=== PATIENT | female | born 1995 | race Caucasian/White ===

== ENCOUNTER 2023-04-06 10:19 | Observation (INO) | payer BC, SELFPAY ==
[2023-04-06] MEDS: DEXTROSE 5%/LACTATED RINGERS 1,000 ML 500 ML IV CONT (11:24)
[2023-04-06] MEDS: ONDANSETRON INJ 4 MG/2 ML VIAL IV PUSH (11:24)
[2023-04-06 11:25] VITALS: BMI 27.7
[2023-04-06 11:29] LABS: Basophils Percent Auto 0.2 % (0.2-1.2); Eosinophils Absolute Auto 0.1 K/mm3 (0-0.3); Eosinophils Percent Auto 1.2 % (0-4.4); Hematocrit 38.3 % (37.0-47.0); Hemoglobin 12.3 g/dL (12.0-15.0); Immature Granulocyte Absolute 0.05 K/mm3 (0.00-0.031); Immature Granulocyte Percent A 0.6 % (0-0.5); Lymphocytes Percent Auto 13.1 % (18.3-44.2); Mean Corpuscular HGB Conc 32.1 g/dl (32-36); Mean Corpuscular Hemoglobin 29.2 pg (26-34); Monocytes Absolute Auto 0.6 K/mm3 (0.1-0.6); Monocytes Percent Auto 7.5 % (2.6-8.5); Neutrophils Absolute Auto 6.5 K/mm3 (1.3-6.7); Neutrophils Percent Auto 77.4 % (45.5-73.1); Platelet Count Result 221 k/mm3 (150-375); Red Blood Count 4.21 M/mm3 (4.2-5.4); Red Cell Distribution Width 13.3 % (11.5-14.5); White Blood Count 8.4 K/mm3 (4.5-10.0)
[2023-04-06 11:31] VITALS: BP 106/42; PULSE 71
[2023-04-06 11:41] LABS: Appearance Urine Clear (Clear); Bacteria Urine 1+ /hpf; Bilirubin Urine Negative (Negative); Blood Urine Negative (Negative); Color Urine Yellow (Yellow); Glucose Urine UA Negative (Negative); Ketones Urine Trace mg/dL (Negative); Leukocyte Esterase Ur Trace LEU/UL (Negative); Nitrate Urine Negative (Negative); Non Pathogenic Casts 0-2; Protein Urine Negative (Negative); RBC Urine 0-2 /hpf (0-2); Specific Grav Ur 1.019 (1.001-1.035); Squamous Epithelial Cell Urine Few /hpf (Few); WBC Urine 0-5 /hpf
[2023-04-06 11:45] LABS: Alanine Aminotransferase 27 U/L (6-35); Albumin Level 3.6 g/dL (3.5-5.1); Alkaline Phosphatase 129 U/L (38-126); Anion Gap 6 mmol/L (8-16); Aspartate Amino Transferase 27 U/L (14-36); Bilirubin,Total 0.8 mg/dL (0.2-1.3); Blood Urea Nitrogen 6 mg/dL (7-17); Calcium 8.4 mg/dL (8.4-10.2); Carbon Dioxide 25 mmol/L (22-30); Chloride 106 mmol/L (98-107); Estimated CRCL calculation 147 ml/min; Estimated Glomerular Filt Rate > 60; Glucose 91 mg/dL (65-110); Potassium 3.7 mmol/L (3.4-5.0); Sodium 137 mmol/L (137-145)
[2023-04-06 12:00] VITALS: BP 118/76; PULSE 78
[2023-04-06 12:26] LABS: Add Urine Microscopic? YES
--- NOTE | 2023-04-26 19:02 | PM.OBTRLD ---
OB - Triage/Final Diagnosis Visit Information Comments/Additional reasons for admission: I have assessed the risk for this patient, Cheyanne Joseph, and determined that she would benefit from observation care. Evaluation Laboratory results: Laboratory Tests 04/06/23 04/06/23 10:56 10:58 WBC 8.4 RBC 4.21 Hgb 12.3 Hct 38.3 MCV 91.0 MCH 29.2 MCHC 32.1 RDW 13.3 Plt Count 221 MPV 12.0 H Immature Gran % (Auto) 0.6 H Neut % (Auto) 77.4 H Lymph % (Auto) 13.1 L [place] % (Auto) 7.5 Eos % (Auto) 1.2 Baso % (Auto) 0.2 Lymph # (Auto) 1.10 [place] # (Auto) 0.6 Eos # (Auto) 0.1 Baso # (Auto) 0.0 Abs Immat Gran (auto) 0.05 H Absolute Neuts (auto) 6.5 Absolute Nucleated RBC 0.0 Nucleated RBC % 0.0 Sodium 137 Potassium 3.7 Chloride 106 Carbon Dioxide 25 Anion Gap 6 L BUN 6 L Creatinine 0.50 L Estim Creat Clear Calc 147 Estimated GFR > 60 Glucose 91 Calcium 8.4 Total Bilirubin 0.8 AST 27 ALT 27 Alkaline Phosphatase 129 H Total Protein 7.0 Albumin 3.6 Urine Color Yellow Urine Appearance Clear Urine pH 8.0 Ur Specific [place] 1.019 Urine Protein Negative Urine Glucose (UA) Negative Urine Ketones Trace H Ur Blood (Man) Negative Urine Nitrate Negative Urine Bilirubin Negative Urine Urobilinogen 2.0 H Leukocyte Esterase Rfl Trace H Urine RBC 0-2 Urine WBC 0-5 Ur Squamous Epith Cells Few Urine Bacteria 1+ H Urine Casts 0-2 Final Diagnosis (1) Gastroenteritis: Code(s): K52.9 - Noninfective gastroenteritis and colitis, unspecified Status: Acute
== END 2023-04-06 12:57 | disposition home or self-care (01) ==
PROVIDERS: Admitting Provider Obstetrics & Gynecology; PCP Physician Assistant; Visit Provider Obstetrics & Gynecology
DX: O99.613 Diseases of the digestive system complicating pregnancy, third trimester (principal); K52.9 Noninfective gastroenteritis and colitis, unspecified; Z3A.34 34 weeks gestation of pregnancy
CPT/HCPCS: 36415; 80053; 81001; 85025; 96374; G0378; G0379; J2405; J7121

== ENCOUNTER 2024-03-07 13:20 | Emergency (ER) | payer BC, SELFPAY ==
--- NOTE | 2024-03-07 13:25 | ED.URI ---
HPI - URI/Sore Throat General Chief Complaint: Upper Respiratory Infection Stated Complaint: sorethroat,headache Time Seen by Provider: 03/07/24 13:45 Source: patient, RN notes reviewed and old records reviewed Mode of arrival: ambulatory Limitations: no limitations History of Present Illness HPI Narrative: 28 year old female presents to the [facility] with complaints of a scratchy throat and headache for 5 days. Has been taking Excedrin reports that on Wednesday and Wednesday she had a fever 101. Reports that she was exposed to influenza. Symptoms started , 5 days ago Onset (ago): day(s) (5) Related Data Home Medications Medication Instructions Recorded Confirmed No Home Medications 03/07/24 03/07/24 Allergies Allergy/AdvReac Type Severity Reaction Status Date / Time No Known Allergies Allergy Verified 03/07/24 13:24 Review of Systems Review of Systems: All systems reviewed & are unremarkable except as noted in HPI and below Constitutional: Constitutional: Reports as per HPI and Reports headache(s) Eyes: Eyes: Reports no additional eye complaints ENT: Reports as per HPI Cardiovascular: Cardiovascular: Reports no additional cardiovascular complaints, Denies chest pain and Denies dyspnea Respiratory: Respiratory: Reports no additional respiratory complaints, Denies chest congestion, Denies cough and Denies dyspnea Gastrointestinal: Gastrointestinal: Reports no additional gastrointestinal complaints, Denies abdominal pain, Denies nausea and Denies vomiting Musculoskeletal: Musculoskeletal: Reports no additional musculoskeletal complaints Integumentary/Breasts: Skin/Breast: Reports system reviewed and no additional complaints, except as docu Neurologic: Reports system reviewed and no additional complaints, except as documented Psychiatric: Psychiatric: Reports no additional psychiatric complaints Allergic/Immunologic: Allergic/Immunologic: Reports no additional allergic/immunologic complaints [facility] Past Medical History Medical History Vaginal delivery Surgical History Surgical History [place] teeth removed Family History Family History Other Breast cancer Cerebrovascular accident Social History Social History Smoking status: Never smoker Second hand tobacco smoke exposure: No Alcohol intake: former Alcohol use details: Not since Substance use: never Substance use type: does not use Lack of Transportation: No Lack of Food: Never True Current Housing: I Have Housing Concerned About Future Housing: No Difficulty Paying Gas/Electric Bills: No Difficulty Paying for Meds: No Currently Unemployed: No Education: Master's Degree or Higher Difficulty w/ Childcare or Family Care: No Living arrangements: with family Occupation/Education: occupation Gender identity (if verbalized by the patient): Female Sexual Orientation (if Verbalized by the Patient): Straight or Heterosexual Spiritual care concerns: No Comments At the time of my signature, I reviewed and agree with the nursing past medical, surgical, social, and family history. There is no relevant family history pertinent to the patient complaint. Exam Const: General: cooperative, healthy appearing, comfortable, no acute distress, well developed, alert and well nourished Nutritional Appearance: well nourished Orientation/consciousness: patient oriented x3 Limitations: no limitations HENMT: Head: normal to inspection Ears: hearing grossly normal bilaterally, external ears normal, TM's normal bilaterally, EAC's normal, mastoids normal, no periauricular adenopathy and Abnormal EAC present Face/Nose/Sinus: Normal external nose present, Normal nares present, Normal nasal mucous
[2024-03-07 13:32] VITALS: BP 128/70; PULSE 78; RESP 16; TEMP 36.3; O2SAT 100
== END 2024-03-07 14:08 | disposition home or self-care (01) ==
PROVIDERS: Emergency Provider Nurse Practitioner; PCP Internal Medicine
DX: J11.1 Influenza due to unidentified influenza virus with other respiratory manifestations (principal); Z20.822 Contact with and (suspected) exposure to COVID-19
CPT/HCPCS: 87081; 87426; 87804; 87880; 99213; G0463

== ENCOUNTER 2024-03-09 08:03 | Emergency (ER) | payer BC, SELFPAY ==
[2024-03-09] VITALS (17 sets, daily range): BP systolic 105–120; BP diastolic 58–77; PULSE 75–100; RESP 12–18; TEMP 36.5; O2SAT 96–100
--- NOTE | ~2024-03-09 | CT_ITS ---
Non-contrast Head CT History: Headache Technique: Axial non-contrast imaging of the brain was performed. Dose reduction technique was used on this scan by utilizing automated exposure control and iterative reconstruction technique. The dose -length product (DLP) was 605.33 mGy-cm. Findings: There is no evidence of intracranial hemorrhage, mass lesion, or acute infarct. Brain par enchyma appears normal. The ventricles and subarachnoid spaces are normal in size. The calvarium ap pears normal. The visualized paranasal sinuses and mastoid air cells are clear. Impression: No significant abnormality seen. Reviewed, dictated and finalized at location . Impression: No significant abnormality seen.
--- NOTE | 2024-03-09 08:22 | ED.GENADULT ---
HPI - General Adult General Chief complaint: Headache Stated complaint: headache, vomiting, fever, Time Seen by Provider: 03/09/24 08:12 Source: patient Mode of arrival: ambulatory Limitations: no limitations History of Present Illness HPI narrative: 28-year-old female presenting for flu-like symptoms for the last week. Has been having headaches which are frontal, nausea, sore throat, generalized fatigue for a week now. Was seen at urgent care a few days ago and tested negative for viral panel. Still having some headaches as well as a symptoms pain no vision changes. No lightheadedness. Vomiting is nonbloody nonbilious Related Data Allergies Allergy/AdvReac Type Severity Reaction Status Date / Time No Known Allergies Allergy Verified 03/07/24 13:24 Review of Systems Review of Systems: All systems reviewed & are unremarkable except as noted in HPI and below PMFSH Past Medical History Medical History Vaginal delivery Surgical History Surgical History [place] teeth removed Family History Family History Other Breast cancer Cerebrovascular accident Social History Social History Smoking status: Never smoker Second hand tobacco smoke exposure: No Alcohol intake: former Alcohol use details: Not since Substance use: never Substance use type: does not use Lack of Transportation: No Lack of Food: Never True Current Housing: I Have Housing Concerned About Future Housing: No Difficulty Paying Gas/Electric Bills: No Difficulty Paying for Meds: No Currently Unemployed: No Education: Master's Degree or Higher Difficulty w/ Childcare or Family Care: No Living arrangements: with family Occupation/Education: occupation Gender identity (if verbalized by the patient): Female Sexual Orientation (if Verbalized by the Patient): Straight or Heterosexual Spiritual care concerns: No Exam Narrative: Constitutional: Generally well appearing, no acute distress Head: Atraumatic, no deformities. Eyes: Pupils equal, round, and reactive to light. Neck: Supple, no tracheal deviation, no JVD. ENMT: Mucous membranes moist Cardiovascular: S1, S2 auscultated. No murmurs, rubs, or gallops. No S3/S4. Normal Distal pulses. No peripheral edema. Respiratory: Lung sounds equal. No wheezes, rales, or rhonchi. Gastrointestinal: Abdomen was soft and non-tender. Non-distended. No rebound or guarding. Genitourinary: Deferred Musculoskeletal: Normal muscle tone and bulk. No obvious deformities or tenderness over extremities. Skin: No rashes. Neurological: Strength 5/5 in extremities. Cranial nerves I-XII grossly intact. Distal sensation intact. Mental Status: Awake, alert and oriented x3. Follows commands Course Vital Signs Vital signs: Vital Signs Pulse Rate 96 03/09/24 08:07 Respiratory Rate 15 03/09/24 08:07 Temperature 36.5 C 03/09/24 08:10 Pulse Rate 88 03/09/24 11:32 Respiratory Rate 18 03/09/24 11:32 Blood Pressure 105/58 L 03/09/24 11:32 Pulse Oximetry 99 03/09/24 11:32 Oxygen Delivery Room Air 03/09/24 08:10 Medical Decision Making [facility] Narrative Medical decision making narrative: 28-year-old female here with headaches, nausea, vomiting, sore throat, fatigue for a week. Seen several days ago at urgent care and diagnosed with viral syndrome. On exam she is very well-appearing, normal neurological exam, normal vital signs. Does appear to be likely a viral syndrome versus migraine potentially. We did have a extensive discussion about obtaining imaging of her head as having vomiting with headaches is a potential presentation of having elevated intracranial pressure or other intracranial abnormalities. Discussed given her n
[2024-03-09] MEDS: SODIUM CHLORIDE 0.9% IV 1,000 ML 999 ML IV CONT (08:54)
[2024-03-09 08:55] LABS: Appearance Urine Clear (Clear); Bacteria Urine None Seen /hpf; Bilirubin Urine Negative (Negative); Blood Urine Negative (Negative); Color Urine Yellow (Yellow); Glucose Urine UA Negative (Negative); Ketones Urine Negative (Negative); Leukocyte Esterase Ur Trace LEU/UL (Negative); Nitrate Urine Negative (Negative); Non Pathogenic Casts 0-2; Protein Urine Negative (Negative); RBC Urine 0-2 /hpf (0-2); Specific Grav Ur 1.024 (1.001-1.035); Squamous Epithelial Cell Urine Few /hpf (Few); WBC Urine 0-5 /hpf (0-3)
[2024-03-09] MEDS: ONDANSETRON INJ 4 MG/2 ML VIAL IV PUSH (08:55)
[2024-03-09] MEDS: KETOROLAC 30 MG/ML VIAL (*BKC) 15 MG IV PUSH (08:55)
[2024-03-09 08:58] LABS: Add Urine Microscopic? YES
[2024-03-09 09:00] LABS: Basophils Percent Auto 0.3 % (0.2-1.2); Eosinophils Absolute Auto 0.2 K/mm3 (0-0.3); Eosinophils Percent Auto 2.9 % (0-4.4); Hematocrit 42.8 % (37.0-47.0); Hemoglobin 13.8 g/dL (12.0-15.0); Immature Granulocyte Absolute 0.02 K/mm3 (0.00-0.031); Immature Granulocyte Percent A 0.3 % (0-0.5); Lymphocytes Absolute Auto 1.04 K/mm3 (0.9-3.2); Lymphocytes Percent Auto 16.9 % (18.3-44.2); Mean Corpuscular HGB Conc 32.2 g/dl (32-36); Mean Corpuscular Hemoglobin 29.1 pg (26-34); Mean Corpuscular Volume 90.1 fl (80-100); Mean Platelet Volume 11.7 fl (7.4-10.4); Monocytes Absolute Auto 0.6 K/mm3 (0.1-0.6); Monocytes Percent Auto 9.9 % (2.6-8.5); Neutrophils Absolute Auto 4.3 K/mm3 (1.3-6.7); Neutrophils Percent Auto 69.7 % (45.5-73.1); Platelet Count Result 214 k/mm3 (150-375); Red Blood Count 4.75 M/mm3 (4.2-5.4); Red Cell Distribution Width 12.3 % (11.5-14.5); White Blood Count 6.2 K/mm3 (4.5-10.0)
[2024-03-09 09:06] LABS: Alanine Aminotransferase 16 U/L (6-35); Albumin Level 4.6 g/dL (3.5-5.1); Alkaline Phosphatase 64 U/L (38-126); Anion Gap 8 mmol/L (4-12); Aspartate Amino Transferase 20 U/L (14-36); Bilirubin,Total 1.3 mg/dL (0.2-1.3); Blood Urea Nitrogen 17 mg/dL (7-17); Calcium 8.8 mg/dL (8.4-10.2); Carbon Dioxide 23 mmol/L (22-30); Chloride 106 mmol/L (98-107); Estimated CRCL calculation 85 ml/min; Estimated Glomerular Filt Rate > 60; Glucose 101 mg/dL (65-110); Potassium 4.1 mmol/L (3.4-5.0); Sodium 137 mmol/L (137-145)
[2024-03-09 10:45] LABS: Influenza A QL RT-PCR Negative (Negative); Influenza B QL RT-PCR Negative (Negative); RSV RNA, RT-PCR Negative (Negative); SARS-CoV-2 RNA PCR Negative (Negative)
[2024-03-09] MEDS: diphenhydrAMINE HCl INJ 50 MG/ML VIAL IV PUSH (11:16)
[2024-03-09] MEDS: METOCLOPRAMIDE HCL INJ 10 MG/2 ML VIAL IV PUSH (11:16)
== END 2024-03-09 12:31 | disposition home or self-care (01) ==
PROVIDERS: Emergency Provider Emergency Medicine; PCP Internal Medicine
DX: G43.909 Migraine, unspecified, not intractable, without status migrainosus (principal); Z20.822 Contact with and (suspected) exposure to COVID-19
CPT/HCPCS: 36415; 70450; 80053; 81001; 81025; 85025; 87637; 96361; 96374; 96375; 99284; J1200; J1885; J2405; J2765; J7030

== ENCOUNTER 2025-02-27 07:12 | Outpatient (CLI) | payer BC, SELFPAY ==
--- NOTE | ~2025-02-27 | US_ITS ---
Pelvic ultrasound. Clinical History: First trimester , establish dates and viability Technique: Realtime transabdominal and transvaginal scanning of the pelvis was performed. Color flow Doppler and Doppler spectral analysis were performed. Findings: The uterus is anteverted, and contains an intrauterine gestation. [place]-rump length of 2.9 cm corresponds to an estimated gestational age of 9 weeks 5 days. heart rate is 182 bpm. Yolk s ac also present. There is suggestion of thin septations or synechiae within the gestational sac, exte rnal to the amnion, internal to the chorion. There is a 1.4 x 1.3 x 1.5 cm hypoechoic somewhat massli ke structure protruding from the dose into. The right ovary measures 2.5 x 1.6 x 3.0 cm. No significant right ovarian or adnexal mass is seen. The left ovary measures 1.8 x 2.8 x 1.8 cm. No significant left ovarian or adnexal mass is seen. There is no evidence of free fluid in the cul de sac. Impression: Live intrauterine gestation, with estimated gestational age of 9 weeks 5 days. heart rate is 18 2 bpm. Suggestion of thin septations or synechiae within the gestational sac, but external to the amnion. 1.4 x 1.3 x 1.5 cm hypoechoic solid masslike structure indenting the gestational sac, protruding from the placenta. This could reflect a chorionic bump/focal hematoma. Follow-up ultrasound advised given the gestational sac and placental findings noted above. Reviewed, dictated and finalized at location . Impression: Live intrauterine gestation, with estimated gestational age of 9 weeks 5 days. heart rate is 182 bpm. Suggestion of thin septations or synechiae within the gestational sac, but exte rnal to the amnion. 1.4 x 1.3 x 1.5 cm hypoechoic solid masslike structure indenting the gestationa l sac, protruding from the placenta. This could reflect a chorionic bump/focal hematoma. Follow-up ultrasound advised given the gestational sac and placental findings n oted above.
--- OUTSIDE RECORDS SUMMARY | 2025-02-27 07:18 | XMS_ITS | Clinical Summary ---
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 Gender Identity Not on file Sexual Orientation Not on file Plan of Treatment Health Maintenance Due Date Last Done Comments Annual Physical 1997 Hepatitis C 2012 DTaP, Tdap and Td Vaccines ( 1 - Tdap) 2013 Hepatitis B Vaccines (1 of 3 - 19+ 3-dose series) 2013 COVID-19 Vaccine (2023-2 5 season) 2024 HPV Vaccines Aged Out No longer eligi ble based on patient's age to complete this topic Meningococcal B Vaccine Aged Out No l onger eligible based on patient's age to complete this topic Meningococcal Vaccine Aged Out No rosalee warner eligible based on patient's age to complete this topic Pneumococcal Vaccine: Pediat rics (0 to 5 Years) and At-Risk Patients (6 to 64 Years) Aged Out No longer eligible b ased on patient's age to complete this topic RSV Immunizations Under 20 Months Aged Out No longer eligible based on patient's age to complete this topic
--- OUTSIDE RECORDS SUMMARY | 2025-02-27 07:18 | XMS_ITS | Clinical Summary ---
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
--- OUTSIDE RECORDS SUMMARY | 2025-02-27 07:18 | XMS_ITS | Clinical Summary ---
Author Organization 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 Gender Identity Not on file Sexual Orientation Not on file Plan of Treatment Health Maintenance Due Date Last Done Comments Hepatitis C Virus (HCV) Screening 1994 TdaP Immunization 1994 Hepatitis B Immunization (1 of 3 - 19+ 3-dose series) 2013 Pap Smear 2015 Cervical Cancer Screening (CCS) 2024 HPV/Cotest 2024 Influenza Immunization (#1) 2024 SARS-COV-2 Immunization ( season) 2024 Respiratory Syncytial Virus (RSV) Immunization (Adult) (1 - 1-dose 75+ series) 2069 Meningococcal Immunization (ACWY) Aged Out No longer eligible based on patient's age to complete this topic Pneumococcal Immunization Combined Aged Out No longer eligible based on patient's age to complete this topic Rotavirus Immunization Aged Out No lo nger eligible based on patient's age to complete this topic
== END 2025-02-27 07:13 | disposition home or self-care (01) ==
PROVIDERS: PCP Obstetrics & Gynecology; Visit Provider Nurse Practitioner Family
DX: O36.80X0 Pregnancy with inconclusive fetal viability, not applicable or unspecified (principal); Z3A.09 9 weeks gestation of pregnancy
CPT/HCPCS: 76801; 76817

== ENCOUNTER 2025-03-05 13:07 | Outpatient (CLI) | payer BC, SELFPAY ==
--- NOTE | ~2025-03-05 | US_ITS ---
EXAMINATION: US OB <=14 wk fetus w TV DATE: 03/05/2025 18:26 CDT INDICATION: One-week follow-up. Chorionic bump versus focal hematoma COMPARISON: 02/27/2025 TECHNIQUE: Real-time transabdominal obstetric ultrasound. FINDINGS: 2 para 1 Estimated date of delivery by last ultrasound is 09/28/2025 The uterus measures 9.9 x 5.8 x 8.7 cm A gestational sac is identified within the uterus. A pole is identified, with a crown-rump length that measures 3.6 cm, corresponding to an approx imate gestational age of 10 weeks and 4 days. cardiac activity is identified at a rate of 175 bpm. Redemonstration of a convex shaped irregular avascular protrusion from the choriodecidual surface int o the gestational sac. This focus measures 14 x 11 x 21 mm, compared with 14 x 13 x 15 mm on the prev ious study. The difference in size may be secondary to positioning and technique, as well as the use of an additional ultrasound machine in obtaining these images. Redemonstration of synechiae within the gestational sac, external to the amnion. The right ovary measures 3.0 x 2.0 x 2.4 cm. The left ovary measures 3.1 x 1.9 x 2.2cm. Estimated date of delivery by ultrasound is 09/27/2025 IMPRESSION: Single intrauterine gestation with an approximate gestational age of 10 weeks and 4 days, with cardiac activity identified. Redemonstration of a chorionic bulge, for which short-term follow-up is recommended. Redemonstration of likely synechiae within the gestational sac, unchanged from prior. Reviewed, dictated and finalized at location A. IMPRESSION: Single intrauterine gestation with an approximate gestational age of 10 weeks a nd 4 days, with cardiac activity identified. Redemonstration of a chorionic bulge, for which short-term follow-up is recomme nded. Redemonstration of likely synechiae within the gestational sac, unchanged from prior.
== END 2025-03-05 13:08 | disposition home or self-care (01) ==
PROVIDERS: PCP Obstetrics & Gynecology; Visit Provider Nurse Practitioner Family
DX: O28.3 Abnormal ultrasonic finding on antenatal screening of mother (principal); Z3A.10 10 weeks gestation of pregnancy
CPT/HCPCS: 76801; 76817

== ENCOUNTER 2025-07-06 08:53 | Outpatient (CLI) | payer BC, SELFPAY ==
--- OUTSIDE RECORDS SUMMARY | 2025-07-06 09:00 | XMS_ITS | Clinical Summary ---
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
--- OUTSIDE RECORDS SUMMARY | 2025-07-06 09:00 | XMS_ITS | Clinical Summary ---
Author Organization [facility] Address [address] [place] [address] [place] [address] Care Team Providers Care Business Support Professional Name Role Phone Unavailable Primary Care Provider Unavailabl e Source Comments [facility],non-owned Affiliates and Associated Physician Practices is amultiple site organization consisting of ambulatory clinics and hospital sitesin [place], [place], [place] and [place]. This disclosure is being madepursuant to the Care Everywhere program and may not contain all information available regarding this patient. Last updated 18.[facility] Allergies No known active allergies Encounters Date Type Department Care Team Description 06/08/2025 8:00 AM CDT - 06/08/2025 11:59 PM CDT Hospital Encounter [facility] Maternal & Care [address] [place] [phone] Charley Velazquez MD ADDICTION COUNSELOR Discharge Disposition: Home or Self Care 05/11/2025 8:15 AM CDT - 05/11/2025 11:59 PM CDT Hospital Encounter [facility] Maternal & Care [address] [place] [id number] Charley Velazquez MD ADDICTION COUNSELOR Discharge Disposition: Home or Self Care from Last 3 Months Social History Tobacco Use Types Packs/Day Years Used Date Smoking Tobacco: Never Assessed Estimated Date of Delivery Comme nts Yes 09/27/2025 Based on last me nstrual period of 12/21/2024 Sex and Gender Information Value Date Recorded Sex Assigned at Not on file 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 Gender Identity Not on file Sexual Orientation Not on file Plan of Treatment Upcoming Encounters Date Type Department Care Team (Late st Contact Info) Description 08/03/2025 1:45 PM CDT Appointment [facility] Women's Health Maternal & Care [address] [place] [phone] Health Maintenance Due Date Last Done Comments HIV SCREENING 2009 HEPATITIS C SCREENING 04/18/2012 DTAP/TDAP/TD VACCINES (1 - Tdap) 2013 HEPATITIS B VACCINE (1 of 3 - 19+ 3-dose series) 2013 PAP SMEAR 2015 HPV VACCINE (1 - 3-dose SCDM series) 2021 COVID-19 VACCINE (1 - 2023-2 5 season) 2024 DEPRESSION SCREENING 11/29/2024 OB-ONE HOUR GLUCOSE 06/21/2025 OB-TDAP CURRENT 06/28/2025 03/12/2023 OB-RHOGAM INJECTION 07/05/2025 INFLUENZA VACCINE (#1) 2025 Respiratory Syncytial Virus (RSV) Vaccine Pt: or over 60 yrs (1 - Risk 1-dose series) 08/02/2025 ZOSTER VACCINE (1 of 2) 2044 HIB VACCINE Aged Out No longer eligi ble based on patient's age to complete this topic MENINGOCOCCAL (Group B) VACC INE SHARED DECISION-MAKING Aged Out No longer eligibl e based on patient's age to complete this topic MENINGOCOCCAL GROUPS A/C/Y/W VACCINE Aged Out No longer eligible b ased on patient's age to complete this topic PNEUMOCOCCAL VACCINE Aged Out No long er eligible based on patient's age to complete this topic Procedures Procedure Name Priority Date/Time Associated Diagnosis Comments SONOGRAM - COMPLETE Routine 06/08/2025 8:10 AM CDT Uterine fibroid complicating care, baby not yet delivered in first trimester (HCC) Encounter for anatomic survey (HCC) 19 weeks gestation of ([facility]) SONOGRAM - COMPLETE Routine 05/11/2025 8:11 AM CDT Uterine fibroid complicating care, baby not yet delivered in first trimester (HCC) Encounter for anatomic survey (HCC) 19 weeks gestation of ([facility]) from Last 3 Months Results * SONOGRAM - COMPLETE (06/08/2025 8:10 AM CDT) Only the most recent of2 resultswithin the time period is included. Linked Results Indication ======== anatomy survey Abnormal outside ultrasound in 1st-trimester (solid mass-like structure protruding into the gestational sac, septations between the amnion and chorion), Normal-appearing MFM ultrasound at 12 weeks, Follow-up to complete anatomic survey History ====== OB History 2. Para 1 Maternal Assessment Physical Exam Height 168 cm, 5 ft 6 in. Weight 68 kg, 151 lb. Initial weight 64 kg, 142 lb. BMI 24.37 kg/m . Initial BMI 22.92 kg/m . Weight gain 4 kg, 9 lb Method ====== Transabdominal ultrasound. View: Sufficient ========= Ward . Number of fetuses: 1 Dating ====== Date Details Gest. age OANH LMP 12/21/2024 24 w + 1 d 09/27/2025 Stated OANH 24 w + 1 d 09/27/2025 U/S 06/08/2025 based upon AC, BPD, Femur, HC 24 w + 6 d 09/22/2025 Assigned dating based on the LMP, selected on 03/19/2025 24 w + 1 d 09/27/2025 General Evaluation Cardiac activity present. FHR 143 bpm. Presentation: variable Placenta: Placental site: anterior Umbilical cord: Cord vessels: 3 vessel cord - previously documented. Insertion site: normal insertion - previously documented Amniotic fluid: Amount of AF: normal. MVP 4.1 cm Biometry BPD 60.9 mm 24w 5d 67% Hadlock HC 223.3 mm 24w 3d 39% Hadlock AC 210.0 mm 25w 4d 82% Hadlock Femur 43.8 mm 24w 3d 45% Hadlock Humerus 44.2 mm 26w 2d 95% Anita HC / AC 1.06 Weight Calculation: EFW 755 g 77% Hadlock EFW (lb,oz) 1 lb 11 oz EFW by Hadlock ([id number]) appropriate Growth Overview Exam date GA BPD (mm) HC (mm) AC (mm) FL (mm) HL (mm) EFW (g) 05/11/2025 20w 1d 45.9 38% 173.1 29% 147.9 41% 31 24% 30.7 54% 317 30% 06/08/2025 24w 1d 60.9 67% 223.3 39% 210 82% 43.8 45% 44.2 95% 755 77% Anatomy The following structures appear normal: Face Lips. Nose. Heart / Thorax RVOT view. 3-vessel view. 2-[id number] view. Aortic arch view. Abdomen Cord insertion. Stomach. Kidneys. Bladder. Spine Cervical spine. Thoracic spine. Lumbar spine. Sacral spine. Extremities / Skeleton Hands. Left hand. The following structures were documented previously: Head / Neck Cranium. Lateral ventricles. Choroid plexus. Midline falx. Cavum septi pellucidi. Cerebellum. Cisterna magna. Thalami. Nuchal fold. Face Profile. Nasal bone. Orbits. Heart / Thorax 4-chamber view. LVOT view. Situs. Bicaval view. Ductal arch view. Great vessels. Right lung. Left lung. Diaphragm. Abdomen Bowel. Genitals. Extremities / Skeleton Arms. Right hand. Legs. Feet. sex: male. Impression ========= Single, live, intrauterine at 24w 1d The size & amniotic fluid volume are normal No malformations were seen within the limitations of ultrasound Comment ======== U/S cannot detect all structural, genetic, or functional , placental, or maternal abnormalities Follow-up ======== Follow up as clinically indicated Coding ====== Diagnoses Z36.3: Encounter for screening for malformations Procedures 05847: US Preg Uterus Follow Up [employer] PACS Anatomical Region Laterality Modality Other 06/08/2025 8:10 AM CDT us Tim Landry MD [facility] ORDERABLES Edited Result - Final from Last 3 Months Insurance [facility] Address: [facility] [id number] [place] [address]
--- OUTSIDE RECORDS SUMMARY | 2025-07-06 09:00 | XMS_ITS | Clinical Summary ---
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 Gender Identity Not on file Sexual Orientation Not on file Plan of Treatment Health Maintenance Due Date Last Done Comments Annual Physical 1997 Hepatitis C 2012 DTaP, Tdap and Td Vaccines ( 1 - Tdap) 2013 Hepatitis B Vaccines (1 of 3 - 19+ 3-dose series) 2013 HPV Vaccines (1 - 3-dose SCD M series) 2021 COVID-19 Vaccine (1 - 2023-2 5 season) 2024 Meningococcal B Vaccine Aged Out No l onger eligible based on patient's age to complete this topic Meningococcal Vaccine Aged Out No rosalee warner eligible based on patient's age to complete this topic Pneumococcal Vaccine: Pediat rics (0 to 5 Years) and At-Risk Patients (6 to 49 Years) Aged Out No longer eligible b ased on patient's age to complete this topic RSV Immunizations Under 20 Months Aged Out No longer eligible based on patient's age to complete this topic
--- OUTSIDE RECORDS SUMMARY | 2025-07-06 09:00 | XMS_ITS | Clinical Summary ---
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
[2025-07-06 11:23] LABS: Hematocrit 38.8 % (37.0-47.0); Hemoglobin 12.8 g/dL (12.0-15.0); Mean Corpuscular HGB Conc 33.0 g/dl (32-36); Mean Corpuscular Hemoglobin 30.3 pg (26-34); Mean Corpuscular Volume 91.9 fl (80-100); Platelet Count Result 174 k/mm3 (150-375); Red Blood Count 4.22 M/mm3 (4.2-5.4); White Blood Count 9.8 K/mm3 (4.5-10.0)
[2025-07-06 11:44] LABS: Glucose 1 Hour PP 50gm Dose 81 mg/dL
[2025-07-06 12:24] LABS: HIV 1/2 Ab P24 Ag Result Negative (Negative)
[2025-07-06 12:39] LABS: Syphilis IgG/IgM Antibody Non-Reactive (Nonreactive)
== END 2025-07-06 08:54 | disposition home or self-care (01) ==
LOC: ANHLAB 08:56
PROVIDERS: Visit Provider Nurse Practitioner Family
DX: Z34.90 Encounter for supervision of normal pregnancy, unspecified, unspecified trimester (principal); Z3A.00 Weeks of gestation of pregnancy not specified
CPT/HCPCS: 36415; 82947; 85027; 86593; 86703; G0432

== ENCOUNTER 2025-09-14 16:08 | Observation (INO) | payer BC, SELFPAY ==
--- NOTE | 2025-09-14 16:08 | OBADM ---
This patient, Cheyanne Joseph, admitted to the OB room Labor/Delivery/Recovery 106 for observation. Patient/family oriented to hospital policies and general routines including ID bracelet, bed and alarms, visiting hours, pain management, procedures, bathroom and other care routines, personal items, smoking policy, room service/diet, and visiting hours. Patient/Family are encouraged to report perceived risks to care and to ask questions if they do not understand what they are told or what they should do.
[2025-09-14 17:45] VITALS: BP 119/87; PULSE 97
--- OUTSIDE RECORDS SUMMARY | 2025-09-14 17:50 | XMS_ITS | Clinical Summary ---
Author Organization [facility] Address [address] [place] [phone] Phone Care Team Providers Care Ceramic Engineering Professor Name Role Phone Unavailable Primary Care Provider Unavailabl e Social History Tobacco Use Types Packs/Day Years Used Date Smoking Tobacco: Never Assessed Comments Unknown Sex and Gender Information Value Date Recorded Sex Assigned at Not on file Legal Sex Female 1:36 PM LABORER/GRADE CHECK Gender Identity Not on file Sexual Orientation Not on file Plan of Treatment Health Maintenance Due Date Last Done Comments DTAP/TDAP/TD VACCINES (1 - Tdap) 2013 HEPATITIS B VACCINES (1 of 3 - 19+ 3-dose series) 03/30 HPV/Cotest (21-29) 2015 HPV VACCINES (1 - 3-dose SCDM series) 2021 CERVICAL CANCER SCREENING 2024 HPV/Cotest (30-65) 2024 PAP SMEAR 2024 INFLUENZA VACCINE (#1) 2025 Insurance [facility] BLUE ACCESS CHOICE
--- OUTSIDE RECORDS SUMMARY | 2025-09-14 17:50 | XMS_ITS | Clinical Summary ---
Author Organization [facility] Address [address] [place] [address] Care Team Providers Care Eye Glass Frame Polisher Name Role Phone Unavailable Primary Care Provider Unavailabl e Source Comments [facility],non-owned Affiliates and Associated Physician Practices is amultiple site organization consisting of ambulatory clinics and hospital sitesin [place], [place], [place] and [place]. This disclosure is being madepursuant to the Care Everywhere program and may not contain all information available regarding this patient. Last updated 18.[facility] [employer] Allergies No known active allergies Encounters Date Type Department Care Team Description 07/24/2025 7:30 AM CDT - 07/24/2025 11:59 PM CDT Hospital Encounter [facility] Women's Health Maternal & Care [address] [place] [id number] Jasmina Gordillo MD Discharge Disposition: Home or Self Care from Last 3 Months Social History Tobacco Use Types Packs/Day Years Used Date Smoking Tobacco: Never Assessed Estimated Date of Delivery Comme nts Yes 09/27/2025 Based on last me nstrual period of 12/21/2024 Sex and Gender Information Value Date Recorded Sex Assigned at Not on file 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..] on patient's age to complete this topic Respiratory Syncytial Virus (RSV) Vaccine Pt: or over 60 yrs (No Doses Required) Completed Procedures Procedure Name Priority Date/Time Associated Diagnosis Comments SONOGRAM - COMPLETE Routine 07/24/2025 7:44 AM CDT Uterine fibroid complicating care, baby not yet delivered in first trimester ([facility]) Encounter for ultrasound to assess growth ([facility]) 30 weeks gestation of ([facility]) from Last 3 Months Results * Sonogram - Complete (07/24/2025 7:44 AM CDT) Linked Results Indication ======== Encounter for ultrasound to assess growth Abnormal outside ultrasound in 1st-trimester (solid mass-like structure protruding into the gestational sac, septations between the amnion and chorion), Normal-appearing MFM ultrasound at 12 weeks History ====== OB History 2. Para 1 [id number] 1. live 2022. Gest. age 38 w + 0 d. Weight 3,374 g. Sex of child: female. Details: Vaginal delivery Maternal Assessment Physical Exam Height 168 cm, 5 ft 6 in. Weight 75 kg, 165 lb. Initial weight 64 kg, 142 lb. BMI 26.63 kg/m . Initial BMI 22.92 kg/m . Weight gain 10 kg, 23 lb Method ====== Transabdominal ultrasound, Transabdominal ultrasound. View: Good view ========= Ward . Number of fetuses: 1 Dating ====== Date Details Gest. age OANH LMP 12/21/2024 30 w + 5 d 09/27/2025 Stated OANH 30 w + 5 d 09/27/2025 U/S 07/24/2025 based upon AC, BPD, Femur, HC 31 w + 6 d 09/19/2025 Assigned dating based on the LMP, selected on 03/19/2025 30 w + 5 d 09/27/2025 General Evaluation Cardiac activity present. FHR 154 bpm. Presentation: cephalic Placenta: Placental site: anterior Umbilical cord: Cord vessels: 3 vessel cord - previously documented. Insertion site: normal insertion - previously documented Amniotic fluid: Amount of AF: normal. MVP 7.1 cm. LUCITA 23.9 cm. Q1 7.1 cm, Q2 5.3 cm, Q3 5.7 cm, Q4 5.9 cm Biometry BPD 81.1 mm 32w 4d 89% Hadlock HC 291.7 mm 32w 1d 55% Hadlock AC 275.0 mm 31w 4d 72% Hadlock Femur 59.2 mm 30w 6d 40% Hadlock Humerus 53.0 mm 30w 6d 59% Anita HC / AC 1.06 Weight Calculation: EFW 1,778 g 64% Hadlock EFW (lb,oz) 3 lb 15 oz EFW by Hadlock ([id number]) appropriate Growth Overview Exam date GA BPD (mm) HC (mm) AC (mm) FL (mm) HL (mm) EFW (g) 05/11/2025 20w 1d 45.9 38% 173.1 29% 147.9 41% 31 24% 30.7 54% 317 30% 06/08/2025 24w 1d 60.9 67% 223.3 39% 210 82% 43.8 45% 44.2 95% 755 77% 07/24/2025 30w 5d 81.1 89% 291.7 55% 275 72% 59.2 40% 53 59% 1778 64% Anatomy The following structures appear normal: Abdomen Stomach. Kidneys. Bladder. sex: male. Impression ========= Single, live, intrauterine at 30w 5d The size is appropriate. The amniotic fluid volume is normal. No major malformations were seen within the limitations of ultrasound Comment ======== ultrasound alone cannot detect all structural, genetic, or functional , placental, or maternal abnormalities Follow-up ======== Growth US in 4-6 weeks, or as clinically indicated. Coding ====== Diagnoses Z36.3: Encounter for screening for malformations Z36.89: Encounter for other specified screening Procedures 98183: US Preg Uterus Follow Up [place] PACS Anatomical Region Laterality Modality Other 07/24/2025 7:44 AM CDT Tim Landry MD [facility] ORDERABLES Edited Result - Final from Last 3 Months Insurance [facility]
--- OUTSIDE RECORDS SUMMARY | 2025-09-14 17:50 | XMS_ITS | Clinical Summary ---
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
--- OUTSIDE RECORDS SUMMARY | 2025-09-14 17:50 | XMS_ITS | Clinical Summary ---
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
[2025-09-14 18:00] VITALS: BP 108/66; PULSE 84
--- NOTE | 2025-09-14 18:00 | PC.NURSE ---
Dr. Cardoza notified of pt SVE and reactive tracing reviewed. No further cervical change made. Discharge orders received from Dr. Cardoza.
[2025-09-14 18:40] VITALS: BMI 27.0
--- NOTE | 2025-09-17 16:02 | PM.OBTRLD ---
OB - Triage/Final Diagnosis Visit Information Reason for evaluation: threatened labor Comments/Additional reasons for admission: I have assessed the risk for this patient, Cheyanne Brittani Joseph, and determined that she would benefit from observation care.
== END 2025-09-14 18:14 | disposition home or self-care (01) ==
PROVIDERS: Admitting Provider Obstetrics & Gynecology; Visit Provider Obstetrics & Gynecology
DX: O47.1 False labor at or after 37 completed weeks of gestation (principal); Z3A.38 38 weeks gestation of pregnancy
CPT/HCPCS: G0378; G0379

== ENCOUNTER 2025-09-22 06:56 | Inpatient (IN) | payer BC, SELFPAY ==
[2025-09-22] VITALS (117 sets, daily range): BP systolic 35–133; BP diastolic 24–98; PULSE 54–160; RESP 16; TEMP 36.2–37.7; O2SAT 96–100; BMI 27.8
--- OUTSIDE RECORDS SUMMARY | 2025-09-22 07:01 | XMS_ITS | Clinical Summary ---
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
--- OUTSIDE RECORDS SUMMARY | 2025-09-22 07:01 | XMS_ITS | Clinical Summary ---
Author Organization [facility] Address [address] [place] [phone] Phone Care Team Providers Care Corrugated Box Machine Operator Name Role Phone Unavailable Primary Care Provider Unavailabl e Social History Tobacco Use Types Packs/Day Years Used Date Smoking Tobacco: Never Assessed Comments Unknown Sex and Gender Information Value Date Recorded Sex Assigned at Not on file Legal Sex Female 1:36 PM FIRST COOK Gender Identity Not on file Sexual Orientation Not on file Plan of Treatment Health Maintenance Due Date Last Done Comments DTAP/TDAP/TD VACCINES (1 - Tdap) 2013 HEPATITIS B VACCINES (1 of 3 - 19+ 3-dose series) 03/30 HPV/Cotest (21-29) 2015 HPV VACCINES (1 - 3-dose SCDM series) 2021 CERVICAL CANCER SCREENING 2024 HPV/Cotest (30-65) 2024 PAP SMEAR 2024 INFLUENZA VACCINE (#1) 2025 Insurance [facility] BLUE ACCESS CHOICE
--- OUTSIDE RECORDS SUMMARY | 2025-09-22 07:01 | XMS_ITS | Clinical Summary ---
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
[2025-09-22 07:37] LABS: Hematocrit 38.7 % (37.0-47.0); Hemoglobin 13.0 g/dL (12.0-15.0); Immature Granulocyte Percent A 0.6 % (0-0.5); Lymphocytes Absolute Auto 1.96 K/mm3 (0.9-3.2); Mean Corpuscular HGB Conc 33.6 g/dl (32-36); Mean Corpuscular Hemoglobin 30.0 pg (26-34); Mean Corpuscular Volume 89.4 fl (80-100); Nucleated Red Blood Cells Absolute Auto 0.000 K/mm3 (0.0-0.012); Nucleated Red Blood Cells Perc 0.0 % (0.0-0.2); Platelet Count Result 178 k/mm3 (150-375); Red Blood Count 4.33 M/mm3 (4.2-5.4); White Blood Count 10.9 K/mm3 (4.5-10.0)
--- NOTE | 2025-09-22 07:42 | LDADM ---
This patient, Cheyanne Joseph, was admitted to Labor/Delivery/Recovery 105 on 09/22/25 at 06:56. Plans for labor, pain management and were discussed with patient. Patient/family oriented to hospital policies and general routines including ID bracelet, bed and alarms, visiting hours, pain management, procedures, bathroom and other care routines, personal items, smoking policy, room service/diet and guest tray routines, security routines, and visiting hours. Patient/Family are encouraged to report perceived risks to care and to ask questions if they do not understand what they are told or what they should do. See [facility]BI[facility] for further documentation.
[2025-09-22] MEDS: LACTATED RINGERS 1,000 ML 125 ML IV CONT ×2 (07:56→12:53)
[2025-09-22 08:25] LABS: Syphilis IgG/IgM Antibody Non-Reactive (Nonreactive)
[2025-09-22] MEDS: OXYTOCIN 30 UNITS/NS 500 ML 30 UNITS/500 ML BAG IV CONT (09:27)
[2025-09-22] MEDS: LACTATED RINGERS 1,000 ML 999 ML IV CONT (11:19)
[2025-09-22] MEDS: ONDANSETRON INJ 4 MG/2 ML VIAL IV PUSH (14:13)
[2025-09-22] MEDS: FAMOTIDINE 20 MG/2 ML VIAL IV PUSH (14:19)
--- NOTE | 2025-09-22 17:37 | PM.IMHP ---
H&P: HPI History of Present Illness Date/Time: 09/22/25 17:37 Chief Complaint: MIL Narrative: She presents for MIL. PNC uncomplicated. Review of Systems Review of Systems: All systems reviewed & are unremarkable except as noted in HPI and below Constitutional: Constitutional: Reports no additional constitutional complaints and Denies headache(s) Eyes: Eyes: Denies spots in vision ENT: Reports system reviewed and no additional complaints, except as documented and Denies headache(s) Cardiovascular: Cardiovascular: Denies chest pain and Denies dyspnea Respiratory: Respiratory: Denies dyspnea Gastrointestinal: Gastrointestinal: Reports no additional gastrointestinal complaints Genitourinary: Genitourinary: Reports amenorrhea Musculoskeletal: Musculoskeletal: Reports no additional musculoskeletal complaints Integumentary/Breasts: Skin/Breast: Denies breast mass and Denies rash Neurologic: Denies headache(s) Psychiatric: Psychiatric: Reports no additional psychiatric complaints PMFSH Past Medical History Medical History Vaginal delivery Surgical History Surgical History [place] teeth removed Family History Family History Other Breast cancer Cerebrovascular accident Social History Social History Smoking status: Never smoker Second hand tobacco smoke exposure: No Alcohol intake: former Alcohol use details: Not since Substance use: never Substance use type: does not use Lack of Transportation: No Lack of Food: Never True Current Housing: I Have Housing Concerned About Future Housing: No Difficulty Paying Gas/Electric Bills: No Difficulty Paying for Meds: No Currently Unemployed: No Education: Master's Degree or Higher Difficulty w/ Childcare or Family Care: No Living arrangements: with family Occupation/Education: occupation Gender identity (if verbalized by the patient): Female Sexual Orientation (if Verbalized by the Patient): Straight or Heterosexual Spiritual care concerns: No Meds Home Medications and Allergies Home Medications ?Medication ?Instructions ?Recorded ?Confirmed ?Type ondansetron HCl 4 mg tablet 4 mg PO Q6H PRN nausea and 02/15/25 08/31/25 Rx vomiting #30 tabs vitamins 30 30 mg iron-10 cap PO 03/08/25 08/31/25 History mg iron-folic acid 1 mg-om3 capsule Allergies Allergy/AdvReac Type Severity Reaction Status Date / Time No Known Allergies Allergy Verified 09/22/25 07:43 Vital Signs Vital Signs - 24 hr 09/22/25 07:31 09/22/25 07:42 09/22/25 08:00 Temperature 99.2 F Pulse Rate 94 91 Blood Pressure 127/82 112/77 Pulse Oximetry Oxygen Delivery Room Air 09/22/25 09:00 09/22/25 09:30 09/22/25 10:00 Temperature Pulse Rate 91 96 103 H Blood Pressure 122/68 122/85 126/79 Pulse Oximetry Oxygen Delivery 09/22/25 10:30 09/22/25 11:08 09/22/25 11:30 Temperature Pulse Rate 104 H 94 94 Blood Pressure 127/79 133/88 115/77 Pulse Oximetry Oxygen Delivery 09/22/25 11:45 09/22/25 11:46 09/22/25 11:48 Temperature Pulse Rate 89 100 Blood Pressure 125/78 119/71 Pulse Oximetry 96 Oxygen Delivery 09/22/25 11:50 09/22/25 11:51 09/22/25 11:53 Temperature Pulse Rate 64 54 L Blood Pressure 81/29 L 89/43 L Pulse Oximetry 98 Oxygen Delivery 09/22/25 11:55 09/22/25 11:57 09/22/25 11:59 Temperature Pulse Rate 78 61 71 Blood Pressure 100/51 L 88/44 L 78/48 L Pulse Oximetry 96 Oxygen Delivery 09/22/25 12:00 09/22/25 12:03 09/22/25 12:05 Temperature Pulse Rate 60 84 84 Blood Pressure 110/46 L 105/52 L 98/54 L Pulse Oximetry 96 97 Oxygen Delivery 09/22/25 12:08 09/22/25 12:10 09/22/25 12:13 Temperature Pulse Rate 87 88 76 Blood Pressure 95/50 L 99/44 L 100/44 L Pulse Oximetry 100 Oxygen Delivery 09/22/25 12:15 09/22/25 12:18 09/22/25 12:20 Temperature Pulse Rate 85 82 84 Blood Pressure 101/60 104/49 L 99/55 L Pulse Oximetry 98 99 Oxygen Delivery 09/22/25 12:23 09/22/25 12:25 09/22/25 12:28 Temperature Pulse Rate 95 74 74 Blood Pressure 102/64 94/50 L 99/52 L Pulse Oximetry 98 Oxygen Delivery 09/22/25 12:30 09/22/25 12:33 09/22/25 12:35 Temperature Pulse Rate 77 72 74 Blood Pressure 103/50 L 99/51 L 103/57 L Pulse Oximetry 100 100 Oxygen Delivery 09/22/25 12:38 09/22/25 12:40 09/22/25 12:43 Temperature Pulse Rate 78 81 88 Blood Pressure 100/57 L 109/60 112/68 Pulse Oximetry 100 Oxygen Delivery 09/22/25 12:45 09/22/25 12:48 09/22/25 12:50 Temperature Pulse Rate 84 78 80 Blood Pressure 110/64 105/63 103/66 Pulse Oximetry 99 100 Oxygen Delivery 09/22/25 12:53 09/22/25 12:55 09/22/25 12:58 Temperature Pulse Rate 86 82 76 Blood Pressure 101/69 109/54 L 103/58 L Pulse Oximetry 100 Oxygen Delivery 09/22/25 13:00 09/22/25 13:05 09/22/25 13:10 Temperature 98.5 F Pulse Rate 89 Blood Pressure 101/55 L Pulse Oximetry 100 100 100 Oxygen Delivery 09/22/25 13:15 09/22/25 13:20 09/22/25 13:25 Temperature Pulse Rate 79 Blood Pressure 117/63 Pulse Oximetry 100 100 100 Oxygen Delivery 09/22/25 13:30 09/22/25 13:35 09/22/25 13:40 Temperature Pulse Rate 80 Blood Pressure 112/69 Pulse Oximetry 100 100 100 Oxygen Delivery 09/22/25 13:45 09/22/25 13:50 09/22/25 13:55 Temperature Pulse Rate 80 Blood Pressure 119/80 Pulse Oximetry 100 100 100 Oxygen Delivery 09/22/25 14:00 09/22/25 14:03 09/22/25 14:08 Temperature Pulse Rate 86 Blood Pressure 106/66 Pulse Oximetry 100 100 100 Oxygen Delivery 09/22/25 14:13 09/22/25 14:18 09/22/25 14:23 Temperature Pulse Rate Blood Pressure Pulse Oximetry 100 100 100 Oxygen Delivery 09/22/25 14:28 09/22/25 14:30 09/22/25 14:33 Temperature Pulse Rate 76 72 Blood Pressure 103/56 L 100/46 L Pulse Oximetry 100 100 Oxygen Delivery 09/22/25 14:38 09/22/25 14:43 09/22/25 14:45 Temperature Pulse Rate 70 Blood Pressure 99/47 L Pulse Oximetry 100 100 Oxygen Delivery 09/22/25 14:49 09/22/25 14:54 09/22/25 14:59 Temperature Pulse Rate Blood Pressure Pulse Oximetry 100 100 99 Oxygen Delivery 09/22/25 15:00 09/22/25 15:04 09/22/25 15:09 Temperature 100 F H Pulse Rate 83 Blood Pressure 104/60 Pulse Oximetry 100 99 Oxygen Delivery 09/22/25 15:14 09/22/25 15:15 09/22/25 15:19 Temperature Pulse Rate 97 Blood Pressure 123/67 Pulse Oximetry 100 98 Oxygen Delivery 09/22/25 15:24 09/22/25 15:29 09/22/25 15:30 Temperature Pulse Rate 101 H Blood Pressure 117/74 Pulse Oximetry 100 100 Oxygen Delivery 09/22/25 15:34 09/22/25 15:39 09/22/25 15:43 Temperature Pulse Rate Blood Pressure Pulse Oximetry 99 100 100 Oxygen Delivery 09/22/25 15:45 09/22/25 15:49 09/22/25 15:53 Temperature Pulse Rate 82 Blood Pressure 110/67 Pulse Oximetry 99 99 Oxygen Delivery 09/22/25 15:58 09/22/25 16:00 09/22/25 16:03 Temperature 99.4 F Pulse Rate 83 Blood Pressure 118/55 L Pulse Oximetry 100 100 Oxygen Delivery 09/22/25 16:08 09/22/25 16:15 09/22/25 16:16 Temperature Pulse Rate 81 Blood Pressure 112/90 Pulse Oximetry 100 100 Oxygen Delivery 09/22/25 16:20 09/22/25 16:25 09/22/25 16:30 Temperature Pulse Rate 90 Blood Pressure 112/61 Pulse Oximetry 100 99 100 Oxygen Delivery 09/22/25 16:35 09/22/25 16:40 09/22/25 16:45 Temperature Pulse Rate 92 Blood Pressure 126/76 Pulse Oximetry 99 100 100 Oxygen Delivery 09/22/25 16:50 09/22/25 16:55 09/22/25 16:59 Temperature 99.8 F H Pulse Rate Blood Pressure Pulse Oximetry 100 100 Oxygen Delivery 09/22/25 17:00 09/22/25 17:02 09/22/25 17:05 Temperature Pulse Rate 94 Blood Pressure 105/73 Pulse Oximetry 100 100 Oxygen Delivery 09/22/25 17:10 09/22/25 17:15 09/22/25 17:30 Temperature Pulse Rate 96 91 Blood Pressure 118/81 125/98 H Pulse Oximetry 100 99 Oxygen Delivery Exam Const: General: no acute distress Eyes: General: appearance normal, both eyes and all related structures Resp: Effort & Inspection: normal respiratory effort Cardio: Rate: regular rate GI: Other: Gravid no fundal tenderness no right upper quadrant pain Skin: General skin exam: no rashes or lesions noted Neuro: Cognition (Neuro): normal cognition Extrem: General: normal to inspection Psych: Mental Status: mental status grossly normal H&P: Results Labs Labs: Short CBC 09/22/25 Range/Units 07:27 WBC 10.9 H (4.5-10.0) K/mm3 Hgb 13.0 (12.0-15.0) g/dL Hct 38.7 (37.0-47.0) % Plt Count 178 (150-375) k/mm3 Assessment and Plan Assessment and plan (1) Elective induction of labor planned: Status: Acute Assessment and Plan: 1. Admit 2. Pitocin induction.
--- NOTE | 2025-09-22 17:41 | PM.OBPRVD ---
OB - Vaginal Delivery Note Procedure Delivery date: 09/25/25 Induction method: Per Pitocin Protocol Delivery augmentation: Rupture of Membranes Delivery monitor: External FHT Route of delivery: Episiotomy description: None Laceration Description: None Quantitative Blood Loss (ml): 150 Anesthesia type: Epidural Disposition: Floor Complications: No immediate complications Narrative: She was admitted for [facility]. She had pitocin then AROM clear fluid. She progressed to complete. She pushed for one contraction and delivered a male . Infant's nose and mouth suctioned with bulb at perineum. Infant vigorously crying and placed on maternal abdomen. Cord doubly clamped and cut. Pitocin started. Placenta delivered spontaneously and intact. [place] Baby Date of : 09/22/25 Time of : 17:19 Gestational Age by Date: 39 Infant gender: Male Weight (pounds): 7 Weight (ounces): 15 presentation: vertex position: Right Occiput Anterior Placenta delivery description: Spontaneous Cord Vessel Description: 3 Vessels, Nuchal Cord, Loose, Delayed Cord Clamping and Around Body score one minute: 8 score five minutes: 8
--- NOTE | 2025-09-22 17:43 | P.DS_ITS ---
DS: Admitting Diagnosis Discharge Date 09/24/2025 Admitting Diagnosis Induction of labor DS: Discharge Diagnosis Discharge Diagnosis (1) Vaginal delivery: Code(s): O80 - Encounter for full-term uncomplicated delivery Status: Acute OB - DS: Summary Hospital Course Hospital Course: she was admitted for medical induction of labor. She had uncomplicated vaginal delivery. She did well . Baby was discharged to home on day 2 patient was discharged home on day 2. OB Procedures : Ultrasound OB Procedures Intrapartum: Spontaneous Vag Delivery OB Procedures: : None Peripartum Data Delivery Method: Natural Vaginal complications: none Status at Discharge Functional status at discharge: independent ambulation Time Spent with Patient Time attestation: Total time spent providing and/or coordinating discharge services: Exam Const: General: cooperative Orientation/consciousness: oriented to person, oriented to place and oriented to time HENMT: Face/Nose/Sinus: Normal external nose present Eyes: General: appearance normal, both eyes and all related structures Resp: Effort & Inspection: normal respiratory effort GI: Inspection: normal to inspection Skin: General skin exam: normal color Neuro: General: oriented to person, oriented to place and oriented to time Extrem: General: normal to inspection and no calf tenderness Psych: Appearance: grossly normal Mental Status: mental status grossly normal DS: Data Data Completed and Pending Labs on day of discharge: Labs from last 24 hours 09/22/25 07:27 WBC 10.9 H RBC 4.33 Hgb 13.0 Hct 38.7 MCV 89.4 MCH 30.0 MCHC 33.6 RDW 13.4 Plt Count 178 MPV 11.6 H Immature Gran % (Auto) 0.6 H Neut % (Auto) 72.4 Lymph % (Auto) 18.0 L [place] % (Auto) 7.6 Eos % (Auto) 1.2 Baso % (Auto) 0.2 Lymph # (Auto) 1.96 [place] # (Auto) 0.8 H Eos # (Auto) 0.1 Baso # (Auto) 0.0 Abs Immat Gran (auto) 0.07 H Absolute Neuts (auto) 7.9 H Absolute Nucleated RBC 0.000 Nucleated RBC % 0.0 Syphilis IgG/IgM Ab Non-reactive Blood Type B Positive Antibody Screen Negative Discharge Plan Discharge Attending physician on discharge: Tim Almaguer Consulting providers: Rome Buckley Discharging Clinician: Tim Almaguer Anticipated Discharge Date/Time: 09/24/25 09:36 Patient Disposition: Home Activity: may shower and pelvic rest Diet: regular Discharge Instructions: Education: Mom and Baby Guide Given to: Mother Follow-Up: Call your delivering provider's office for an appointment to be seen in: Call office for an appointment Mom and baby should come to the [facility] for the follow-up appointment. Appointment Date/Time: September 25, 2025 at 2:30 pm What to expect at your follow-up visit: Physical Assessment Call [phone] if you are unable to keep your appointment time. BREAST CARE: * Wear a snug supportive bra. * For engorgement discomfort: Breast Feeding: * Apply warm moist washcloths * Express milk as needed to relieve engorgement * Wear loose clothing Bottle Feeding: * May apply ice packs * For sore nipples: * Identify correct latch-on * Apply warm moist washcloths before and after nursing * Air dry nipples after nursing * May apply Lansinoh cream to nipples EPISIOTOMY/PERINEAL CARE: * Until bleeding stops, use your sterling bottle after urinating * Change your pad frequently throughout the day * You may take sitz baths several times a day (fill your bathtub with warm water and soak for 20 minutes.) Do NOT bathe in the water * No tub baths until seen by your physician - You may shower ACTIVITY: * Rest as much as possible. * Do not exercise or lift anything heavier than your baby (such as laundry or other children.) * Avoid stairs or driving as much as possible. * Do not put anything into the vagina. No douching, tampons, or sexual activity until seen by physician. NOTIFY PHYSICIAN IF YOU HAVE ANY QUESTIONS OR IF ANY OF THE FOLLOWING SYMPTOMS OCCUR: * If your episiotomy/perineum becomes red, swollen, or more painful than what you have experienced in the hospital. * If your vaginal bleeding becomes foul smelling. * If your vaginal bleeding becomes more heavy than a period or if your bleeding changes from pink to bright red. However, you may pass an occasional walnut- sized clot once or twice for the first week . * If you experience a sharp, shooting pain in you calves. * If you discover a hard, reddened area on your breast or if you experience flu- like symptoms. DIET: * Eat regular, well-balanced meals. * Drink plenty of fluids daily. If , drink to thirst. Patient Language: Malay Stand Alone Forms: General Discharge Information Follow-up/Referrals: Tim Almaguer MD [Physician, [employer]] - Call for Appointment Discharge Medications: Continued ondansetron HCl 4 mg tablet 4 mg PO Q6H PRN (Reason: nausea and vomiting) Qty: 30 0RF PNV [id number] 30 mg iron-10 mg iron-1 mg capsule PO Date of admission: 09/22/25 06:56 Primary Care Provider: UNKNOWN,DOCTOR Admitting Provider: Tim Almaguer Attending physician on admission: Tim Almaguer Condition: Stable
[2025-09-22] MEDS: OXYTOCIN 30 UNITS/NS 500 ML 30 UNITS/500 ML BAG 125 UNITS IV CONT (17:54)
--- NOTE | 2025-09-22 21:55 | OBPPTRN ---
09/22/2025 at 2019 Patient transferred to post room #286 in wheelchair. Patient and support person oriented to unit, room, information board, rooming in, admission packet and security measures. Patient verbalizes understanding.
[2025-09-23] MEDS: IBUPROFEN 600 MG TABLET PO ×2 (05:02→23:08)
[2025-09-23] MEDS: ACETAMINOPHEN 325 MG TABLET 650 MG PO ×2 (05:02→13:40)
[2025-09-23 05:32] LABS: Hematocrit 37.8 % (37.0-47.0); Hemoglobin 12.2 g/dL (12.0-15.0)
[2025-09-23 08:00] VITALS: BP 101/63; PULSE 75; RESP 16; TEMP 36.8; O2SAT 100
--- NOTE | 2025-09-23 08:20 | P.PNOB_ITS ---
OB - PN: Subj Subjective Date/time seen: 09/23/25 08:20 Patient comments: no complaints, pain well controlled and tolerating diet [place] feeding status: exclusively breast feeding Narrative: patient doing well this AM. No complaints. Pain is well controlled. She reports minimal bleeding. She is ambulating and voiding without difficulty. She is tolerating PO. She denies N/V, fever, chills. OB - PN: Obj Data Labs 09/23/25 05:08 Labs: Laboratory Results - last 24 hr 09/22/25 09/23/25 07:27 05:08 Hgb 12.2 Hct 37.8 Syphilis IgG/IgM Ab Non-reactive Blood Type B Positive Antibody Screen Negative OB - PN A/P Plan day: 1 Plan: routine care Comments: patient doing well H/H stable desires circumcision. 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 to monitor temperatures continue routine care anticipate d/c tomrorow Time Spent With Patient Time: Total time spent is greater than 50% in coordination of care (as documented) at patient's floor/unit and/or counseling patient: Time with patient: less than 15 minutes Review of Systems 2 Review of Systems: All systems reviewed & are unremarkable except as noted in HPI and below Exam 2 Const: General: comfortable and no acute distress Resp: Effort & Inspection: normal respiratory effort Cardio: Rate: regular rate GI: GI Palp: Yes Soft to palpation and No Tenderness to palpation present (GI) Auscultation: normal bowel sounds Other: fundus firm and below umbilicus. Psych: Affect: normal affect
[2025-09-23] MEDS: MULTIVIT/MIN/PREN/FOL AC/IRON TABLET 1 TAB PO (08:40)
[2025-09-23] MEDS: DOCUSATE SODIUM 100 MG CAPSULE PO ×2 (08:40→17:53)
[2025-09-23 11:20] VITALS: BP 103/60; PULSE 78; RESP 16; TEMP 36.4; O2SAT 100
--- NOTE | 2025-09-23 16:58 | WPDANLDPN2 ---
Anes-Prog Note L&D Date/Time: 09/23/25 16:58 Comfortable throughout: labor and delivery Neuraxial method: epidural Epidural/Spinal procedure site: clean & non-tender Neuro status: Neuro function grossly intact. Cardiovascular status: normal Respiratory status: normal Airway patency: baseline Mental status: baseline Post-Op hydration status: normal Vital Signs: Last Vital Signs Temp 97.6 F 09/23/25 11:20 Pulse 78 09/23/25 11:20 Resp 16 09/23/25 11:20 BP 103/60 09/23/25 11:20 Pulse Ox 100 09/23/25 11:20 O2 Del Method Room Air 09/23/25 11:20 Pain score (VAS): 0 I/O: Intake & Output 09/23/25 09/23/25 09/23/25 07:59 15:59 23:59 Intake Total 0 Balance 0 Post-procedural complaints: none Patient feedback: Patient satisfied with anesthetic care.
[2025-09-23 19:30] VITALS: BP 118/67; PULSE 85; RESP 18; TEMP 36.4; O2SAT 100
[2025-09-24 07:20] VITALS: BP 117/71; PULSE 78; RESP 18; TEMP 36.8; O2SAT 98
[2025-09-24] MEDS: MULTIVIT/MIN/PREN/FOL AC/IRON TABLET 1 TAB PO (08:16)
[2025-09-24] MEDS: IBUPROFEN 600 MG TABLET PO (08:16)
[2025-09-24] MEDS: DOCUSATE SODIUM 100 MG CAPSULE PO (08:16)
--- NOTE | 2025-09-24 08:45 | PC.NURSE ---
Consulted with mother concerning needs and visualized that she is able to independently latch optimally without pain. Infant was latched in the cross cradle position. Baby is sleepy and we discussed normal wake/sleep cycles and that some feedings will be more awake and some will still be sleepy. Reviewed looking at the full 24 hours day and meeting a minimum of 8 feedings. Educated mother on breast and bottle combo feeding and that stimulating the breast frequently is important to promote an abundant milk supply. Mother is feeding appropriately for growth of and understands stimulating to eat if needed. Infant has had appropriate feedings in the last 24 hours meets the outcomes for weight, output, blood sugar and jaundice at this time. Reinforced understanding of milk production, transition of milk, signs of adequate intake, transition of stool, prevention/relief of engorgement, plugged ducts, mastitis, responsive watching for feeding cues, the different methods of stimulating infant to breastfeed 1-3 hours after the start of the last feeding, community resources including outpatient services, and when to call a provider using the resource of the feeding sheet along with the mom and baby guide. Mother voiced understanding of the information shared, is confident to continue effectively her infant at home, when to call for assistance, denies any additional assistance or education at this time. Reported to the Primary RN.
--- NOTE | 2025-09-24 09:35 | P.PNOB_ITS ---
OB - PN: Subj Subjective Date/time seen: 09/24/25 09:35 Narrative: Pain OK. Would like to go home. OB - PN: Obj Data Labs 09/23/25 05:08 OB - PN A/P Plan day: 2 Comments: A: PPD#2, doing well. P: Home to f/u 6 weeks. Exam 2 Psych: Other: AVSS ABD soft, nontender, fundus firm EXT nontender
--- NOTE | 2025-09-24 10:50 | PC.NURSE ---
Patient viewed the discharge video Mother & Baby Care, The First Two Weeks online. Patient was given the opportunity and encouraged to ask questions. Patient verbalized understanding of information shared and has been given the mother/baby guide for home reference.
[2025-09-25 14:57] VITALS: BP 127/65; PULSE 88; RESP 18; TEMP 37; O2SAT 100
== END 2025-09-24 11:00 | disposition home or self-care (01) | DRG 807 ==
LOC: ANHLDR 17:45 → ANHOB2 09-24 09:36 → ANHLDR 09-26 06:52 → ANHOB2 09-26 06:52
PROVIDERS: Admitting Provider Obstetrics & Gynecology; Visit Provider Obstetrics & Gynecology
DX: O69.81X0 Labor and delivery complicated by cord around neck, without compression, not applicable or unspecified (principal); Z37.0 Single live birth; Z3A.39 39 weeks gestation of pregnancy; O69.89X0 Labor and delivery complicated by other cord complications, not applicable or unspecified
CPT/HCPCS: 36415; 85014; 85018; 85025; 86593; 86850; 86900; 86901; A9270; J2405; J2590; J2795; J7120